=== PATIENT | female | born 1965 | race Caucasian/White ===

== ENCOUNTER 2023-07-10 11:21 | Emergency (ER) | payer OTHER ==
[~2023-07-10] VITALS: Ht 162.6 cm; Wt 69.9 kg
[~2023-07-10 11:21] MED LIST: ALPR0.25 PO
[2023-07-10 11:34] VITALS: BP_SYST 132; PULSE 74; RESP 18; TEMP 97.7; O2SAT 96
[2023-07-10 12:12] LABS: BASOPHILS % (AUTO) 0.6 % (0.0-2.0); EOSINOPHILS # (AUTO) 0.1 K/uL (0.0-0.4); HEMATOCRIT 40.4 % (36-48); HEMOGLOBIN 13.2 g/dL (12.0-16.0); LYMPHOCYTES # (AUTO) 1.2 K/uL (1.0-5.5); LYMPHOCYTES % (AUTO) 25.1 % (20.5-51.5); MEAN CORPUSCULAR HEMOGLOBIN 29 pg (27-31); MEAN CORPUSCULAR HGB CONC 33 % (32-36); MEAN CORPUSCULAR VOLUME 89 fL (79.0-98.0); MONOCYTES # (AUTO) 0.5 K/uL (0.0-1.0); MONOCYTES % (AUTO) 10.3 % (1.7-9.3); PLATELET COUNT (AUTO) 188 K/uL (130-430); RED BLOOD CELL COUNT(AUTO) 4.54 MIL/uL (4.2-6.2); RED CELL DISTRIBUTION WIDTH 13.6 % (9.0-15.0); WHITE BLOOD COUNT (AUTO) 4.8 K/uL (4.8-10.8)
[2023-07-10 12:14] LABS: CALCIUM 9.5 mg/dL (8.4-11.0); CREATININE 0.76 mg/dL (0.55-1.30); POTASSIUM 4.1 mmol/L (3.5-5.1)
[2023-07-10 12:18] LABS: ALBUMIN 3.5 g/dL (3.4-4.8); BILIRUBIN,DIRECT 0.1 mg/dL (0.0-0.3); TOTAL BILIRUBIN 0.2 mg/dL (0.0-1.0); TOTAL PROTEIN, SERUM 6.6 g/dL (6.4-8.3)
[2023-07-10 12:24] LABS: INFLUENZA TYPE A Negative (NEGATIVE); INFLUENZA TYPE B NEGATIVE (NEGATIVE)
[2023-07-10] MEDS ORDERED: NACL 0.9% 1,000 ML IV ONE (12:45)
[2023-07-10 13:18] LABS: BILIRUBIN,URINE NEGATIVE (NEGATIVE); BLOOD, URINE NEGATIVE (NEGATIVE); CLARITY/URINE CLEAR (CLEAR); COLOR,URINE YELLOW (YELLOW); GLUCOSE,URINE NEGATIVE (NEGATIVE); KETONES,URINE NEGATIVE (NEGATIVE); LEUKOCYTE ESTERASE ,URINE NEGATIVE (NEGATIVE); NITRITE, URINE NEGATIVE (NEGATIVE); PH,URINE 6.5 (5.0-8.0); PROTEIN URINE NEGATIVE (NEGATIVE); UROBILINOGEN,URINE 0.2 (0.2-1.0)
[2023-07-10] MEDS ORDERED: KETOROLAC TROMETHAMINE 15 MG VIAL IVP ONE ×2 (13:30→14:00)
[2023-07-10] MEDS ORDERED: ACETAMINOPHEN 500 MG TABLET PO ONE ×2 (13:30→14:00)
== END 2023-07-10 14:40 | disposition home or self-care (01) ==
LOC: SED 11:21
DX: R25.2 Cramp and spasm (principal); R10.13 Epigastric pain; R51.9 Headache, unspecified; K21.9 Gastro-esophageal reflux disease without esophagitis; Z79.899 Other long term (current) drug therapy; Z20.822 Contact with and (suspected) exposure to COVID-19
CPT/HCPCS: 99283; 96374; 96361; 87426; 80076; 80048; 81001; 83690; 85025; 36415; 87804 ×2; 81003; J1885; J7030